=== PATIENT | female | born 1995 | race Caucasian/White ===

== ENCOUNTER 2021-12-19 09:19 | Emergency (ER) | payer MEDICAID ==
[~2021-12-19] VITALS: Ht 152.4 cm; Wt 67.6 kg
--- NOTE | 2021-12-19 09:25 | NUR ---
PT AMB TO ER BED 5
[2021-12-19 09:35] VITALS: BP 135/86
[2021-12-19] MEDS ORDERED: KETOROLAC 15 MG/ML VIAL IVP ONE (10:15)
[2021-12-19] MEDS ORDERED: NACL 0.9% 1,000 ML IV SCH (10:15)
--- NOTE | 2021-12-19 10:31 | NUR ---
LUL SWAB COLLECTED AND WALKED TO LAB
--- NOTE | 2021-12-19 10:35 | NUR ---
26/F PRESENTS TO ED WITH C/O ABDOMINAL CRAMPING AND DIARRHEA X2 WEEKS. PATIENT REPORTS TAKING MOTRIN WITH NO RELIEF, DENIES N/V, FEVERS. PATIENT STATES "MUCUS" LIKE LOOSE STOOLS, DENIES TAKING MEDS FOR DIARRHEA. PATIENT DENIES RECENT NEW FOODS OR DRINKS, DENIES CP, SOB, OR URINARY SYMPTOMS.
[2021-12-19 11:07] LABS: ALBUMIN 3.9 g/dL (3.4-5.0); ANION GAP 12.7 (8-16); CARBON DIOXIDE 27.4 mmol/L (21-32); CREATININE 0.7 mg/dL (0.6-1.3); POTASSIUM 4.1 mmol/L (3.5-5.1); TOTAL BILIRUBIN 0.5 mg/dL (0.0-1.0)
[2021-12-19 11:08] LABS: BASOPHILS % (AUTO) 0.2 % (0.0-2.0); EOSINOPHILS # (AUTO) 0.1 K/uL (0-0.4); EOSINOPHILS % (AUTO) 1.1 % (0.0-4.0); HEMATOCRIT 40.2 % (36-48); HEMOGLOBIN 14.1 g/dL (12.0-16.0); LYMPHOCYTES # (AUTO) 1.8 K/uL (2.5-16.5); LYMPHOCYTES % (AUTO) 26.1 % (20.5-51.1); MEAN CORPUSCULAR HEMOGLOBIN 32 pg (27-31); MEAN CORPUSCULAR HGB CONC 35 g/dL (33-37); MEAN CORPUSCULAR VOLUME 89.9 fL (80-94); MONOCYTES # (AUTO) 0.7 K/uL (0.8-1.0); MONOCYTES % (AUTO) 9.9 % (1.7-9.3); NEUTROPHILS # (AUTO) 4.4 K/uL (1.8-7.7); NEUTROPHILS % (AUTO) 62.7 % (42.2-75.2); PLATELET COUNT (AUTO) 337 K/uL (140-450); RED BLOOD CELL COUNT(AUTO) 4.47 MIL/uL (4.20-5.40); RED CELL DISTRIBUTION WIDTH 12.7 % (11.6-13.7)
[2021-12-19 11:23] LABS: APPEARANCE,URINE CLEAR (CLEAR); BILIRUBIN,URINE NEGATIVE (NEGATIVE); BLOOD, URINE TRACE-I (NEGATIVE); COLOR,URINE YELLOW (YELLOW); LEUKOCYTE ESTERASE ,URINE 1+ (NEGATIVE); NITRITE, URINE NEGATIVE (NEGATIVE); UGLUCOSE NEGATIVE (NEGATIVE)
[2021-12-19 11:47] LABS: RBC,URINE NONE SEEN /HPF (0-5); WBC,URINE 0-5 /HPF (0-5)
[2021-12-19] MEDS ORDERED: AZIT250T3 PO (12:20)
[2021-12-19] MEDS ORDERED: ATRO1TAB PO (12:20)
--- NOTE | 2021-12-19 12:43 | NUR ---
IV removed, catheter intact and site benign. Applied folded 4x4 gauze and tape to stop bleeding.
[2021-12-19 12:49] VITALS: BP 106/68
--- NOTE | 2021-12-19 12:50 | NUR ---
Patient discharged with v/s stable. Written and verbal after care instructions ABOUT DIARRHEA given and explained. Patient alert, oriented and verbalized understanding of instructions. Ambulatory with steady gait. All questions addressed prior to discharge. ID band removed. Patient advised to follow up with PMD. Rx of LOMOTIL AND ZITHROMAX given. Patient educated on indication of medication including possible reaction and side effects. Opportunity to ask questions provided and answered.
== END 2021-12-19 12:49 | disposition home or self-care (01) ==
LOC: MED 09:19
DX: R19.7 Diarrhea, unspecified (principal); Z20.822 Contact with and (suspected) exposure to COVID-19; Z98.890 Other specified postprocedural states; Z79.899 Other long term (current) drug therapy; Z79.1 Long term (current) use of non-steroidal anti-inflammatories (NSAID); Z88.0 Allergy status to penicillin
CPT/HCPCS: 36415; 74176; 80053; 81001; 81025; 83690; 85025; 87086; 87426; 96361; 96374; 99284; J1885; J7030